=== PATIENT | female | born 1995 | race Caucasian/White ===

== ENCOUNTER 2017-09-22 16:07 | Emergency (ER) | payer OTHER | END 2017-09-22 18:13 | disposition home or self-care (01) | LOC: M ED 16:07 | DX: M62.838 Other muscle spasm (principal); Z32.01 Encounter for pregnancy test, result positive; M41.9 Scoliosis, unspecified; F17.200 Nicotine dependence, unspecified, uncomplicated | CPT/HCPCS: 87086 ==

== ENCOUNTER → 2017-11-23 | Outpatient (CLI) | payer OTHER ==
[2017-11-23 16:34] LABS: BASO # 0.1 10^3/uL (0.0-0.2); BASO % 0.4 % (0.0-1.0); EOS # 0.4 10^3/uL (0.0-0.50); EOS % 2.8 % (0.0-3.0); HEMATOCRIT 36.6 % (36.0-47.0); HEMOGLOBIN 12.4 g/dl (12.0-15.5); IMMATURE GRANULOCYTE % 0.3 % (0-3.0); LYMPH # 3.6 10^3/uL (1.5-6.5); LYMPH % 25.5 % (24.0-44.0); MEAN CORPUSCULAR HGB CONC 33.9 g/dl (32.0-36.5); MEAN CORPUSCULAR VOLUME 82.6 fl (80.0-96.0); MONO # 0.6 10^3/uL (0.0-0.8); MONO % 4.5 % (0.0-5.0); NEUTROPHILS # 9.4 10^3/uL (1.8-7.7); NEUTROPHILS % 66.5 % (36.0-66.0); PLATELET COUNT, AUTOMATED 293 10^3/uL (150-450); RED BLOOD COUNT 4.43 10^6/uL (4.00-5.40); RED CELL DISTRIBUTION WIDTH 12.6 % (11.5-14.5); WHITE BLOOD COUNT 14.1 10^3/uL (4.0-10.0)
[2017-11-23 16:43] LABS: RUBELLA IgG QUALITATIVE IMMUNE (IMMUNE)
[2017-11-23 16:44] LABS: HEPATITIS B SURFACE ANTIGEN NEGATIVE (NEGATIVE)
[2017-11-23 17:12] LABS: HEPATITIS C VIRUS ABY INDEX 0.1 INDEX (<0.8)
[2017-11-23 17:13] LABS: HIV 1&2 SCREEN CENTAUR NEGATIVE (NEGATIVE)
[2017-11-23 17:47] LABS: CHLAMYDIA DNA AMPLIFICATION NEGATIVE (NEGATIVE); GC DNA AMPLIFICATION NEGATIVE (NEGATIVE)
== END ==
LOC: M LAB 14:57
DX: Z34.81 Encounter for supervision of other normal pregnancy, first trimester (principal); Z3A.11 11 weeks gestation of pregnancy
CPT/HCPCS: 86762

== ENCOUNTER → 2017-12-12 | Outpatient (CLI) | payer OTHER | LOC: M RAD 07:32 | DX: Z34.82 Encounter for supervision of other normal pregnancy, second trimester (principal); Z36.89 Encounter for other specified antenatal screening; Z3A.17 17 weeks gestation of pregnancy | CPT/HCPCS: 76811 ==

== ENCOUNTER → 2017-12-21 | Outpatient (REF) | payer OTHER | LOC: M LAB REF 12-24 13:10 | DX: Z34.82 Encounter for supervision of other normal pregnancy, second trimester (principal); Z3A.00 Weeks of gestation of pregnancy not specified | CPT/HCPCS: 87086 ==

== ENCOUNTER → 2018-01-10 | Outpatient (CLI) | payer OTHER | LOC: M RAD 13:43 | DX: Z36.89 Encounter for other specified antenatal screening (principal); Z3A.22 22 weeks gestation of pregnancy | CPT/HCPCS: 76816 ==

== ENCOUNTER 2018-03-05 04:55 | Emergency (ER) | payer OTHER, MEDICAID ==
[2018-03-05] MEDS: NS 1,000 ML IV (07:39)
[2018-03-05 07:43] LABS: BEDSIDE GLUCOSE 85 MG/DL (70-105)
[2018-03-05 07:46] LABS: BASO # 0.1 10^3/uL (0.0-0.2); BASO % 0.5 % (0.0-1.0); EOS # 0.2 10^3/uL (0.0-0.50); EOS % 1.9 % (0.0-3.0); HEMATOCRIT 40.1 % (36.0-47.0); HEMOGLOBIN 13.3 g/dl (12.0-15.5); IMMATURE GRANULOCYTE % 0.3 % (0-3.0); LYMPH # 3.7 10^3/uL (1.5-6.5); LYMPH % 28.9 % (24.0-44.0); MEAN CORPUSCULAR HEMOGLOBIN 28.4 pg (27.0-33.0); MEAN CORPUSCULAR HGB CONC 33.2 g/dl (32.0-36.5); MEAN CORPUSCULAR VOLUME 85.5 fl (80.0-96.0); MONO # 0.9 10^3/uL (0.0-0.8); MONO % 7.1 % (0.0-5.0); NEUTROPHILS # 7.8 10^3/uL (1.8-7.7); NEUTROPHILS % 61.3 % (36.0-66.0); PLATELET COUNT, AUTOMATED 538 10^3/uL (150-450); RED BLOOD COUNT 4.69 10^6/uL (4.00-5.40); RED CELL DISTRIBUTION WIDTH 14.2 % (11.5-14.5); WHITE BLOOD COUNT 12.8 10^3/uL (4.0-10.0)
[2018-03-05 08:11] LABS: ALBUMIN 3.5 GM/DL (3.2-5.2); ALBUMIN/GLOBULIN RATIO 0.88 (1.00-1.93); ALKALINE PHOSPHATASE 96 U/L (45-117); ALT/SGPT 57 U/L (12-78); ANION GAP 9 MEQ/L (8-16); AST/SGOT 33 U/L (7-37); BILIRUBIN,DIRECT 0.1 MG/DL (0.0-0.2); BILIRUBIN,TOTAL 0.5 MG/DL (0.2-1.0); BLOOD UREA NITROGEN 20 MG/DL (7-18); CALCIUM LEVEL 9.5 MG/DL (8.5-10.1); CARBON DIOXIDE LEVEL 25 MEQ/L (21-32); CHLORIDE LEVEL 109 MEQ/L (98-107); CREATININE FOR GFR 0.77 MG/DL (0.55-1.30); GLOMERULAR FILTRATION RATE > 60.0 (>60); GLUCOSE, FASTING 79 MG/DL (70-100); POTASSIUM SERUM 4.9 MEQ/L (3.5-5.1); SODIUM LEVEL 143 MEQ/L (136-145); TOTAL PROTEIN 7.5 GM/DL (6.4-8.2)
[2018-03-05] MEDS: ONDANSETRON 4MG/2ML VIAL (J2405) IV (10:09)
[2018-03-05] MEDS: NIFEdipine 30 MG XL TAB PO (10:23)
[2018-03-05] MEDS: GI COCKTAIL 50ML BTL(HYOSCYAMINE/MAALOX/LIDOCAINE VISCOUS)(1:3:1) PO (11:03)
== END 2018-03-05 11:35 | disposition home or self-care (01) ==
LOC: M ED 04:55
DX: Z76.0 Encounter for issue of repeat prescription (principal); E86.0 Dehydration; Z79.899 Other long term (current) drug therapy
CPT/HCPCS: 80076

== ENCOUNTER 2018-03-15 22:15 | Emergency (ER) | payer OTHER ==
[2018-03-15 23:13] LABS: BASO % 0.4 % (0.0-1.0); EOS # 0.2 10^3/uL (0.0-0.50); EOS % 2.2 % (0.0-3.0); HEMATOCRIT 38.6 % (36.0-47.0); IMMATURE GRANULOCYTE % 0.1 % (0-3.0); LYMPH # 3.7 10^3/uL (1.5-6.5); LYMPH % 40.2 % (24.0-44.0); MEAN CORPUSCULAR HEMOGLOBIN 28.4 pg (27.0-33.0); MEAN CORPUSCULAR HGB CONC 33.7 g/dl (32.0-36.5); MEAN CORPUSCULAR VOLUME 84.3 fl (80.0-96.0); MONO # 0.4 10^3/uL (0.0-0.8); MONO % 4.7 % (0.0-5.0); NEUTROPHILS # 4.8 10^3/uL (1.8-7.7); NEUTROPHILS % 52.4 % (36.0-66.0); PLATELET COUNT, AUTOMATED 377 10^3/uL (150-450); RED BLOOD COUNT 4.58 10^6/uL (4.00-5.40); RED CELL DISTRIBUTION WIDTH 13.5 % (11.5-14.5); WHITE BLOOD COUNT 9.1 10^3/uL (4.0-10.0)
[2018-03-15] MEDS: diphenhydrAMINE INJ 50MG/ML VIAL (J1200) IV (23:27)
[2018-03-15] MEDS: KETOROLAC 30 MG/ML VIAL (J1885) IV (23:27)
[2018-03-15] MEDS: NS 1,000 ML IV (23:27)
[2018-03-15] MEDS: METOCLOPRAMIDE INJ 10MG/2ML VIAL (J2765) IV (23:28)
[2018-03-15] MEDS ORDERED: ISOVUE-370 76% 100ML VIAL (Q9967) As Ordered (23:29)
[2018-03-15 23:40] LABS: ALBUMIN 3.6 GM/DL (3.2-5.2); ALKALINE PHOSPHATASE 86 U/L (45-117); ALT/SGPT 24 U/L (12-78); ANION GAP 9 MEQ/L (8-16); AST/SGOT 15 U/L (7-37); BILIRUBIN,DIRECT 0.2 MG/DL (0.0-0.2); BILIRUBIN,TOTAL 0.7 MG/DL (0.2-1.0); BLOOD UREA NITROGEN 8 MG/DL (7-18); CALCIUM LEVEL 8.8 MG/DL (8.5-10.1); CARBON DIOXIDE LEVEL 25 MEQ/L (21-32); CHLORIDE LEVEL 109 MEQ/L (98-107); CK-MB VALUE MASS < 1.0 NG/ML (<3.6); CPK CREATINE PHOSPHOKINASE 69 U/L (26-192); CREATININE FOR GFR 0.59 MG/DL (0.55-1.30); GLOMERULAR FILTRATION RATE > 60.0 (>60); GLUCOSE, FASTING 78 MG/DL (70-100); MB/CK RELATIVE INDEX 1.45 (< OR =4); POTASSIUM SERUM 3.5 MEQ/L (3.5-5.1); SODIUM LEVEL 143 MEQ/L (136-145); TOTAL PROTEIN 7.6 GM/DL (6.4-8.2); TROPONIN I < 0.02 NG/ML (< 0.10)
== END 2018-03-16 01:00 | disposition home or self-care (01) ==
LOC: M ED 03-16 01:00
DX: O99.43 Diseases of the circulatory system complicating the puerperium (principal); R51 Headache; I10 Essential (primary) hypertension; R11.0 Nausea; Z87.891 Personal history of nicotine dependence; Z79.899 Other long term (current) drug therapy
CPT/HCPCS: J1200

== ENCOUNTER 2018-03-18 14:10 | Emergency (ER) | payer OTHER ==
[2018-03-18] MEDS: hydrOXYzine 50 MG TAB PO (17:36)
[2018-03-18] MEDS: METOCLOPRAMIDE INJ 10MG/2ML VIAL (J2765) IV (17:45)
[2018-03-18] MEDS: NS 1,000 ML IV (17:45)
[2018-03-18] MEDS: KETOROLAC 30 MG/ML VIAL (J1885) IV (17:45)
[2018-03-18 18:20] LABS: BASO # 0.1 10^3/uL (0.0-0.2); BASO % 0.7 % (0.0-1.0); EOS # 0.1 10^3/uL (0.0-0.50); EOS % 1.2 % (0.0-3.0); HEMATOCRIT 38.1 % (36.0-47.0); HEMOGLOBIN 13.1 g/dl (12.0-15.5); IMMATURE GRANULOCYTE % 0.2 % (0-3.0); LYMPH # 3.5 10^3/uL (1.5-6.5); LYMPH % 34.9 % (24.0-44.0); MEAN CORPUSCULAR HEMOGLOBIN 28.4 pg (27.0-33.0); MEAN CORPUSCULAR HGB CONC 34.4 g/dl (32.0-36.5); MEAN CORPUSCULAR VOLUME 82.6 fl (80.0-96.0); MONO # 0.4 10^3/uL (0.0-0.8); MONO % 4.3 % (0.0-5.0); NEUTROPHILS # 5.8 10^3/uL (1.8-7.7); NEUTROPHILS % 58.7 % (36.0-66.0); PLATELET COUNT, AUTOMATED 364 10^3/uL (150-450); RED BLOOD COUNT 4.61 10^6/uL (4.00-5.40); RED CELL DISTRIBUTION WIDTH 13.2 % (11.5-14.5); WHITE BLOOD COUNT 9.9 10^3/uL (4.0-10.0)
[2018-03-18 18:58] LABS: ANION GAP 13 MEQ/L (8-16); BLOOD UREA NITROGEN 10 MG/DL (7-18); C REACTIVE PROTEIN QUANTITATIV < 0.30 MG/DL (0.00-0.30); CALCIUM LEVEL 8.7 MG/DL (8.5-10.1); CARBON DIOXIDE LEVEL 21 MEQ/L (21-32); CHLORIDE LEVEL 106 MEQ/L (98-107); CK-MB VALUE MASS < 1.0 NG/ML (<3.6); CPK CREATINE PHOSPHOKINASE 79 U/L (26-192); CREATININE FOR GFR 0.59 MG/DL (0.55-1.30); GLOMERULAR FILTRATION RATE > 60.0 (>60); GLUCOSE, FASTING 73 MG/DL (70-100); MB/CK RELATIVE INDEX 1.27 (< OR =4); POTASSIUM SERUM 3.8 MEQ/L (3.5-5.1); SODIUM LEVEL 140 MEQ/L (136-145); THYROID STIMULATING HORMONE 0.502 uIU/ML (0.358-3.740); TROPONIN I < 0.02 NG/ML (< 0.10)
== END 2018-03-18 19:19 | disposition home or self-care (01) ==
LOC: M ED 14:10
DX: R51 Headache (principal); F41.0 Panic disorder [episodic paroxysmal anxiety]
CPT/HCPCS: J1885

== ENCOUNTER 2018-04-15 03:27 | Emergency (ER) | payer OTHER ==
[2018-04-15] MEDS: ONDANSETRON 4MG/2ML VIAL (J2405) IV (04:00)
[2018-04-15] MEDS: NS 1,000 ML IV (04:00)
[2018-04-15 04:11] LABS: BASO % 0.3 % (0.0-1.0); EOS # 0.2 10^3/uL (0.0-0.50); EOS % 1.6 % (0.0-3.0); HEMATOCRIT 39.9 % (36.0-47.0); HEMOGLOBIN 13.5 g/dl (12.0-15.5); IMMATURE GRANULOCYTE % 0.3 % (0-3.0); LYMPH # 3.1 10^3/uL (1.5-6.5); MEAN CORPUSCULAR HEMOGLOBIN 28.3 pg (27.0-33.0); MEAN CORPUSCULAR HGB CONC 33.8 g/dl (32.0-36.5); MEAN CORPUSCULAR VOLUME 83.6 fl (80.0-96.0); MONO # 0.5 10^3/uL (0.0-0.8); MONO % 4.2 % (0.0-5.0); NEUTROPHILS # 7.6 10^3/uL (1.8-7.7); NEUTROPHILS % 66.6 % (36.0-66.0); PLATELET COUNT, AUTOMATED 380 10^3/uL (150-450); RED BLOOD COUNT 4.77 10^6/uL (4.00-5.40); RED CELL DISTRIBUTION WIDTH 12.8 % (11.5-14.5); WHITE BLOOD COUNT 11.5 10^3/uL (4.0-10.0)
[2018-04-15] MEDS: MORPHINE 4 MG/ML 1ML VIAL/SYRINGE (J2270) IV (04:17)
[2018-04-15 04:59] LABS: CONTROL LINE HCG INT CTR LINE PRESENT; HCG, SERUM QUALITATIVE NEGATIVE (NEGATIVE)
[2018-04-15 05:07] LABS: ALBUMIN 3.3 GM/DL (3.2-5.2); ALBUMIN/GLOBULIN RATIO 1.03 (1.00-1.93); ALKALINE PHOSPHATASE 54 U/L (45-117); ALT/SGPT 23 U/L (12-78); ANION GAP 9 MEQ/L (8-16); AST/SGOT 17 U/L (7-37); BILIRUBIN,DIRECT < 0.1 MG/DL (0.0-0.2); BILIRUBIN,TOTAL 0.4 MG/DL (0.2-1.0); BLOOD UREA NITROGEN 9 MG/DL (7-18); CALCIUM LEVEL 8.2 MG/DL (8.5-10.1); CARBON DIOXIDE LEVEL 24 MEQ/L (21-32); CHLORIDE LEVEL 110 MEQ/L (98-107); CREATININE FOR GFR 0.64 MG/DL (0.55-1.30); GLOMERULAR FILTRATION RATE > 60.0 (>60); GLUCOSE, FASTING 118 MG/DL (70-100); LIPASE 136 U/L (73-393); POTASSIUM SERUM 3.6 MEQ/L (3.5-5.1); SODIUM LEVEL 143 MEQ/L (136-145); TOTAL PROTEIN 6.5 GM/DL (6.4-8.2)
[2018-04-15] MEDS ORDERED: ISOVUE-370 76% 100ML VIAL (Q9967) As Ordered (05:13)
[2018-04-15] MEDS: CIPROFLOXACIN 500 MG TAB PO (06:45)
[2018-04-15] MEDS: metroNIDAZOLE (FLAGYL) 500 MG TAB PO (06:45)
[2018-04-15] MEDS: OXYCODONE/APAP 5MG/325MG(BULK FOR ED) 1 TABLET PO (06:45)
== END 2018-04-15 07:07 | disposition home or self-care (01) ==
LOC: M ED 03:27
DX: K52.9 Noninfective gastroenteritis and colitis, unspecified (principal); Z72.0 Tobacco use; Z79.899 Other long term (current) drug therapy
CPT/HCPCS: J2270

== ENCOUNTER 2018-04-23 19:35 | Observation (INO) | payer OTHER ==
[2018-04-23 20:07] LABS: HEMATOCRIT 39.4 % (36.0-47.0); HEMOGLOBIN 13.4 g/dl (12.0-15.5); MEAN CORPUSCULAR HEMOGLOBIN 28.2 pg (27.0-33.0); MEAN CORPUSCULAR VOLUME 82.9 fl (80.0-96.0); PLATELET COUNT, AUTOMATED 390 10^3/uL (150-450); RED BLOOD COUNT 4.75 10^6/uL (4.00-5.40); RED CELL DISTRIBUTION WIDTH 12.6 % (11.5-14.5)
[2018-04-23] MEDS: NS 500 ML IV (20:07)
[2018-04-23 20:09] LABS: ADD MANUAL DIFFER YES; DIFF SLIDE NUMBER 369; POSITIVE DIFF POS FLAG
[2018-04-23 20:25] LABS: ATYPICAL LYMPH 12 % (0-5); EOSINOPHILS 3 % (0-5); LYMPHOCYTES 28 % (16-52); MONOCYTES 6 % (0-8); NEUTROPHILS 51 % (35-75); PLATELET ESTIMATE NORMAL (NORMAL)
[2018-04-23 20:31] LABS: ALBUMIN 4.4 GM/DL (3.2-5.2); ALBUMIN/GLOBULIN RATIO 1.16 (1.00-1.93); ALKALINE PHOSPHATASE 68 U/L (45-117); ALT/SGPT 36 U/L (12-78); ANION GAP 7 MEQ/L (8-16); AST/SGOT 20 U/L (7-37); BILIRUBIN,DIRECT < 0.1 MG/DL (0.0-0.2); BILIRUBIN,TOTAL 0.6 MG/DL (0.2-1.0); BLOOD UREA NITROGEN 9 MG/DL (7-18); C REACTIVE PROTEIN QUANTITATIV 0.35 MG/DL (0.00-0.30); CALCIUM LEVEL 9.4 MG/DL (8.5-10.1); CARBON DIOXIDE LEVEL 23 MEQ/L (21-32); CHLORIDE LEVEL 109 MEQ/L (98-107); CK-MB VALUE MASS < 1.0 NG/ML (<3.6); CPK CREATINE PHOSPHOKINASE 85 U/L (26-192); CREATININE FOR GFR 0.91 MG/DL (0.55-1.30); GLOMERULAR FILTRATION RATE > 60.0 (>60); GLUCOSE, FASTING 116 MG/DL (70-100); LIPASE 175 U/L (73-393); MB/CK RELATIVE INDEX 1.18 (< OR =4); NT-PRO BNP 60 PG/ML (<125); POTASSIUM SERUM 3.6 MEQ/L (3.5-5.1); SODIUM LEVEL 139 MEQ/L (136-145); THYROID STIMULATING HORMONE 0.822 uIU/ML (0.358-3.740); TOTAL PROTEIN 8.2 GM/DL (6.4-8.2); TROPONIN I < 0.02 NG/ML (< 0.10)
[2018-04-23 20:57] LABS: ERYTHROCYTE SEDIMENTATION RATE 19 mm/hr (0-20)
[2018-04-23] MEDS: KETOROLAC 30 MG/ML VIAL (J1885) IV (21:16)
[2018-04-23] MEDS ORDERED: ISOVUE-370 76% 100ML VIAL (Q9967) As Ordered (21:54)
[2018-04-23] MEDS: NS 1,000 ML IV (22:30)
[2018-04-23] MEDS: METOCLOPRAMIDE INJ 10MG/2ML VIAL (J2765) IV (22:30)
[2018-04-23] MEDS: GI COCKTAIL 50ML BTL(HYOSCYAMINE/MAALOX/LIDOCAINE VISCOUS)(1:3:1) PO (22:30)
[2018-04-24 01:32] LABS: MAGNESIUM LEVEL 2.1 MG/DL (1.8-2.4)
[2018-04-24 01:49] LABS: LACTIC ACID SEPSIS PROTOCOL 2.3 MMOL/L (0.4-2.0)
[2018-04-24] MEDS: ONDANSETRON 4 MG TAB (S0181) PO ×2 (03:35→13:17)
[2018-04-24] MEDS: NS 1,000 ML IV ×2 (06:08→15:56)
[2018-04-24 07:50] LABS: CK-MB VALUE MASS < 1.0 NG/ML (<3.6); CPK CREATINE PHOSPHOKINASE 55 U/L (26-192); MB/CK RELATIVE INDEX 1.82 (< OR =4); TROPONIN I < 0.02 NG/ML (< 0.10)
[2018-04-24] MEDS: PANTOPRAZOLE 40MG TAB (PROTONIX) PO (08:23)
[2018-04-24] MEDS: SERTRALINE HCL 50 MG TAB PO (08:23)
[2018-04-24] MEDS: NIFEdipine 30 MG XL TAB PO (08:23)
[2018-04-24 15:57] LABS: CK-MB VALUE MASS < 1.0 NG/ML (<3.6); CPK CREATINE PHOSPHOKINASE 61 U/L (26-192); MB/CK RELATIVE INDEX 1.64 (< OR =4); TROPONIN I < 0.02 NG/ML (< 0.10)
[2018-04-24] MEDS: MAALOX 30 ML SUSP *UDC PO ×2 (16:12→21:25)
[2018-04-24] MEDS: LIDOCAINE VISCOUS 2% SOLN 15ML UDC PO (17:52)
[2018-04-24] MEDS: ACETAMINOPHEN TAB 650MG DOSE (2X325MG) PO (20:13)
[2018-04-25] MEDS: hydrOXYzine 25 MG TAB PO (00:02)
[2018-04-25 00:23] LABS: CK-MB VALUE MASS < 1.0 NG/ML (<3.6); CPK CREATINE PHOSPHOKINASE 57 U/L (26-192); MB/CK RELATIVE INDEX 1.75 (< OR =4); TROPONIN I < 0.02 NG/ML (< 0.10)
[2018-04-25] MEDS: NS 1,000 ML IV (01:30)
[2018-04-25 06:30] LABS: HEMATOCRIT 30.7 % (36.0-47.0); MEAN CORPUSCULAR HEMOGLOBIN 27.9 pg (27.0-33.0); MEAN CORPUSCULAR HGB CONC 33.2 g/dl (32.0-36.5); MEAN CORPUSCULAR VOLUME 83.9 fl (80.0-96.0); PLATELET COUNT, AUTOMATED 271 10^3/uL (150-450); RED BLOOD COUNT 3.66 10^6/uL (4.00-5.40); RED CELL DISTRIBUTION WIDTH 12.8 % (11.5-14.5); WHITE BLOOD COUNT 8.9 10^3/uL (4.0-10.0)
[2018-04-25 06:38] LABS: ANION GAP 7 MEQ/L (8-16); BLOOD UREA NITROGEN 6 MG/DL (7-18); CALCIUM LEVEL 8.2 MG/DL (8.5-10.1); CARBON DIOXIDE LEVEL 24 MEQ/L (21-32); CHLORIDE LEVEL 111 MEQ/L (98-107); CREATININE FOR GFR 0.68 MG/DL (0.55-1.30); GLOMERULAR FILTRATION RATE > 60.0 (>60); GLUCOSE, FASTING 76 MG/DL (70-100); MAGNESIUM LEVEL 2.2 MG/DL (1.8-2.4); POTASSIUM SERUM 3.5 MEQ/L (3.5-5.1); SODIUM LEVEL 142 MEQ/L (136-145)
[2018-04-25 06:45] LABS: POSITIVE DIFF POS FLAG
[2018-04-25 06:48] LABS: HEMOGLOBIN 10.2 g/dl (12.0-15.5)
[2018-04-25 06:49] LABS: ADD MANUAL DIFFER YES; DIFF SLIDE NUMBER 44
[2018-04-25 07:53] LABS: ANISOCYTOSIS 1+; ATYPICAL LYMPH 1 % (0-5); BASOPHILS 1 % (0-4); EOSINOPHILS 1 % (0-5); HYPOCHROMASIA 1+; LYMPHOCYTES 59 % (16-52); MICROCYTOSIS 1+; MONOCYTES 2 % (0-8); NEUTROPHILS 36 % (35-75); PLATELET ESTIMATE NORMAL (NORMAL)
[2018-04-25] MEDS: SERTRALINE HCL 50 MG TAB PO (08:34)
[2018-04-25] MEDS: PANTOPRAZOLE 40MG TAB (PROTONIX) PO (08:34)
[2018-04-25] MEDS: NIFEdipine 30 MG XL TAB PO (08:35)
== END 2018-04-25 11:52 | disposition home or self-care (01) ==
LOC: M ED INP 19:36 → M MSPAV 04-24 02:59 → M ED 19:35
DX: R07.9 Chest pain, unspecified (principal); R10.13 Epigastric pain; R19.7 Diarrhea, unspecified; K21.9 Gastro-esophageal reflux disease without esophagitis; R00.0 Tachycardia, unspecified; E86.0 Dehydration; F32.9 Major depressive disorder, single episode, unspecified; Z79.899 Other long term (current) drug therapy
CPT/HCPCS: Q9967

== ENCOUNTER → 2018-05-10 | Outpatient (REF) | payer OTHER | LOC: M SFHCPLAZ 15:36 | DX: Z53.9 Procedure and treatment not carried out, unspecified reason (principal) ==

== ENCOUNTER 2018-06-18 06:00 | Day surgery (SDC) | payer OTHER ==
[~2018-06-18] VITALS: Ht 162.6 cm; Wt 89.8 kg
[~2018-06-18 06:00] MED LIST: AMLO5TAB6 PO; CIPR-249 PO; CYCL10TA PO; FLAG500T PO; HYDR-3363 PO; LR 1,000 ML IV ONE; MAKE250I IM; MAPA500T2 PO; MYLASSUD PO; NIFE30TA7 PO; NIFE90TA3 PO; NUVAMIS2 PV; PANT40TA3 PO; REGL10TA6 PO; SERT-155 PO; SUCR1TA PO; ZOFR4TAB14 PO
[2018-06-18 06:19] LABS: HEMATOCRIT 38.7 % (36.0-47.0); HEMOGLOBIN 12.7 g/dl (12.0-15.5); MEAN CORPUSCULAR HEMOGLOBIN 27.8 pg (27.0-33.0); MEAN CORPUSCULAR HGB CONC 32.8 g/dl (32.0-36.5); MEAN CORPUSCULAR VOLUME 84.7 fl (80.0-96.0); PLATELET COUNT, AUTOMATED 328 10^3/uL (150-450); RED BLOOD COUNT 4.57 10^6/uL (4.00-5.40); WHITE BLOOD COUNT 11.9 10^3/uL (4.0-10.0)
[2018-06-18 06:41] LABS: HCG, SERUM QUALITATIVE NEGATIVE (NEGATIVE)
[2018-06-18] MEDS ORDERED: BUPIVACAINE HCL 0.25% 10 ML VIAL As Ordered ONE (07:09)
[2018-06-18] MEDS ORDERED: SILVER NITRATE APPLICATOR As Ordered ONE (07:10)
[2018-06-18] MEDS ORDERED: LIDOCAINE 2% INJ 100 MG/5 ML SDV (FOR ANES.) As Ordered ONE (07:14)
[2018-06-18] MEDS ORDERED: PROPOFOL 200 MG/20 ML VIAL As Ordered ONE (07:14)
[2018-06-18] MEDS ORDERED: ROCURONIUM BROMIDE 50 MG/5 ML VIAL As Ordered ONE ×2 (07:14→08:15)
[2018-06-18] MEDS ORDERED: fentaNYL 100 MCG/2 ML INJECTION (J3010) As Ordered ONE ×2 (07:15→09:07)
[2018-06-18] MEDS ORDERED: MIDAZOLAM INJ 2 MG/2 ML VIAL (J2250) As Ordered ONE (07:15)
[2018-06-18] MEDS ORDERED: dexameTHASONE 4 MG/ML 1ML VIAL (J1100) As Ordered ONE (07:53)
[2018-06-18] MEDS ORDERED: HYDROmorphone HCL 2 MG/ML 1ML VIAL (J1170) As Ordered ONE (08:10)
[2018-06-18] MEDS ORDERED: KETOROLAC 60 MG/2 ML VIAL (J1885) As Ordered ONE (08:37)
[2018-06-18] MEDS ORDERED: ONDANSETRON 4MG/2ML VIAL (J2405) As Ordered ONE (08:37)
[2018-06-18] MEDS ORDERED: SUGAMMADEX SODIUM 500 MG/5 ML VIAL (BRIDION) As Ordered ONE (08:38)
[2018-06-18] MEDS ORDERED: PERCOCET 5MG/325MG TAB As Ordered ONE (09:07)
[2018-06-18] MEDS: PERCOCET 5MG/325MG TAB PO PRN ×2 (09:10→09:40)
[2018-06-18] MEDS: fentaNYL 100 MCG/2 ML INJECTION (J3010) IV PRN ×4 (09:10→09:25)
[2018-06-18] MEDS ORDERED: HYDROMORPHONE HCL 0.5 MG/ 0.5 ML SYRINGE (J1170 PER 1) IV PRN (09:15)
[2018-06-18] MEDS ORDERED: LR 1,000 ML IV SCH ×2 (09:15)
[2018-06-18] MEDS ORDERED: ONDANSETRON 4MG/2ML VIAL (J2405) IV PRN (09:15)
[2018-06-18] MEDS ORDERED: PERCOCET PO (10:18)
[2018-06-18] MEDS ORDERED: IBUP80TA PO (10:19)
[2018-06-18] MEDS ORDERED: COLA100C5 PO (10:19)
[2018-06-18 11:39] VITALS: BP 117/64
--- NOTE | 2018-06-19 13:05 | RO ---
DATE OF PROCEDURE: 06/18/2018 PREOPERATIVE DIAGNOSIS: Satisfied parity. POSTOPERATIVE DIAGNOSIS: Satisfied parity. PROCEDURE PERFORMED: Laparoscopic bilateral salpingectomy. FINDINGS: Normal uterus and bilateral adnexa and ovaries. Minimal adhesions. SURGEON: Jose De Jesus Nichols DO CLINICAL CYTOGENETICIST: Dari, PGY-1. ANESTHESIA TYPE: General endotracheal. SPECIMENS TO PATHOLOGY: Bilateral fallopian tubes. ESTIMATED BLOOD LOSS: 5 mL. FLUIDS REPLACED: 1 liter of lactated Ringer's. DRAINS: Boswell catheter. URINE OUTPUT: 100 mL during the case. COMPLICATIONS: None. PREOPERATIVE ANTIBIOTICS: None indicated. The patient is of 100% satisfied parity. She has been offered long-acting reversible contraception. She has declined this option. She is firm in her decision for permanent tubal sterilization. She has had two complicated pregnancies both deliveries. DESCRIPTION OF PROCEDURE: The patient was counseled and consented on the risks, benefits, indications and alternatives of the procedure. Informed consent was obtained. She was taken to the operating room with an IV running. She was placed on the operating room table in the dorsal supine position. General anesthesia was administered and airway was secured without any difficulty. She was placed in the low lithotomy position. She was prepared and draped in normal sterile fashion. Time-out was performed per protocol. A Boswell catheter was placed under sterile conditions. A sterile speculum was placed with good visualization of the cervix. The anterior lip of the cervix was grasped with a single-tooth tenaculum. Downward traction was applied. The cervix was sequentially dilated with Rhett dilators. The ZUMI uterine manipulator was then placed without any difficulty. Single-tooth tenaculum was removed. Sterile speculum was removed. Glove switch was performed. Attention was turned to the abdomen. 0.25% Marcaine was injected in the umbilicus. A 5 mm incision was made in umbilicus with the #11 blade and through this incision a Veress needle was placed into the intraperitoneal cavity. Intraperitoneal placement was confirmed with ease of flow of normal saline, positive drop test and negative return on aspiration. The opening pressure was 6 mmHg. The abdomen was insufflated with 2 liters of gas. The Veress needle was removed. A size 5 mm Xcel laparoscopic trocar was placed through the umbilicus. Intraperitoneal placement was confirmed without any incidental bleeding or injury. The patient was placed in steep Trendelenburg. Two additional laparoscopic port sites were placed through 5 mm incisions in the left lower quadrant. Cannulas were placed under direct visualization without any difficulty. Attention was first turned to the left fallopian tube. The left fallopian tube was grasped at the fimbriated end and elevated. The underlying mesosalpinx was sequentially clamped, coagulated and transected to the level of broad ligament at the level of the cornu. At the level of cornu, the left fallopian tube was clamped, coagulated and transected. The fallopian tube was brought through the cannula without any difficulty and sent to pathology for permanent section. In a similar fashion, attention was turned to the right fallopian tube. The right fallopian tube was grasped at the fimbriated end and elevated. The underlying mesosalpinx was sequentially coagulated and transected until the level of the cornu was reached. At the level of cornu, the fallopian tube was clamped, coagulated and transected thus amputating. The right fallopian tube was brought through the cannula and sent to pathology for permanent section. Both the right and left fallopian tubes were removed and the sites were hemostatic. The gas was released from the abdomen. As the gas was released, inspection of the pelvis revealed continued hemostasis. The cannulas were removed. The skin incisions were closed with #4-0 Monocryl in subcuticular fashion and reinforced with Dermabond. The ZUMI uterine manipulator was removed. The Boswell catheter was removed. All instruments were removed from vagina. Sponge, lap, needle and instrument counts were correct times three. The patient was transferred to the postanesthesia care unit (PACU) in good and stable condition. BRAXTON
== END 2018-06-18 11:58 | disposition home or self-care (01) ==
LOC: M SDC 06:00
PROVIDERS: ATTEND Obstetrics & Gynecology
DX: Z30.2 Encounter for sterilization (principal)
CPT/HCPCS: 36415; 58661; 84703; 85027; 86850; 86900; 86901; 88302; J1100; J1170; J1885; J2250; J2405; J3010

== ENCOUNTER 2018-07-06 00:54 | Emergency (ER) | payer OTHER ==
[~2018-07-06] VITALS: Ht 162.6 cm; Wt 93.2 kg
[~2018-07-06 00:54] MED LIST changes: +COLA100C5 PO; +IBUP80TA PO; -LR 1,000 ML IV ONE; +PERCOCET PO
[2018-07-06] MEDS ORDERED: KETOROLAC TROMETHAMINE 10 MG TAB PO ONE (01:30)
[2018-07-06] MEDS ORDERED: ONDANSETRON 4 MG ORAL DISINTEGRATING TAB (Q0162 PER 1MG) PO ONE (01:30)
[2018-07-06] MEDS ORDERED: AMOX500C PO (03:24)
[2018-07-06] MEDS ORDERED: AMOXICILLIN 500 MG CAP PO ONE (03:30)
[2018-07-06 03:32] VITALS: BP 125/82
== END 2018-07-06 03:38 | disposition home or self-care (01) ==
LOC: M ED 00:54
DX: J32.1 Chronic frontal sinusitis (principal); F17.210 Nicotine dependence, cigarettes, uncomplicated
CPT/HCPCS: 99283; Q0162

== ENCOUNTER → 2018-07-29 | Outpatient (REF) | payer OTHER ==
[~2018-07-29] MED LIST changes: +AMOX500C PO
[2018-07-29 13:17] LABS: HEMATOCRIT 39.6 % (36.0-47.0); HEMOGLOBIN 12.9 g/dl (12.0-15.5); MEAN CORPUSCULAR HEMOGLOBIN 27.8 pg (27.0-33.0); MEAN CORPUSCULAR HGB CONC 32.6 g/dl (32.0-36.5); MEAN CORPUSCULAR VOLUME 85.3 fl (80.0-96.0); PLATELET COUNT, AUTOMATED 331 10^3/uL (150-450); RED BLOOD COUNT 4.64 10^6/uL (4.00-5.40); WHITE BLOOD COUNT 10.9 10^3/uL (4.0-10.0)
[2018-07-29 13:23] LABS: ALBUMIN 4.1 GM/DL (3.2-5.2); ALT/SGPT 23 U/L (12-78); BILIRUBIN,TOTAL 0.7 MG/DL (0.2-1.0); BLOOD UREA NITROGEN 9 MG/DL (7-18); CARBON DIOXIDE LEVEL 28 MEQ/L (21-32); CHLORIDE LEVEL 108 MEQ/L (98-107); GLOMERULAR FILTRATION RATE > 60.0 (>60); GLUCOSE, FASTING 92 MG/DL (70-100); POTASSIUM SERUM 3.8 MEQ/L (3.5-5.1); SODIUM LEVEL 142 MEQ/L (136-145); TOTAL PROTEIN 7.4 GM/DL (6.4-8.2)
== END ==
LOC: M SFHCPLAZ 10:48
PROVIDERS: ATTEND Family Medicine
DX: O14.90 Unspecified pre-eclampsia, unspecified trimester (principal); Z3A.00 Weeks of gestation of pregnancy not specified

== ENCOUNTER 2018-08-16 09:27 | Emergency (ER) | payer OTHER ==
[~2018-08-16] VITALS: Ht 162.6 cm; Wt 94.4 kg
[2018-08-16] MEDS ORDERED: ONDANSETRON 4MG/2ML VIAL (J2405) IV ONE (10:00)
[2018-08-16] MEDS ORDERED: FAMOTIDINE IV BAG 20 MG in APPROPRIATE DILUENT 1 EA IV ONE (10:15)
[2018-08-16] MEDS ORDERED: KETOROLAC 30 MG/ML VIAL (J1885) IV ONE (10:15)
[2018-08-16 10:46] LABS: BASO % 0.2 % (0.0-1.0); EOS # 0.1 10^3/uL (0.0-0.50); EOS % 0.6 % (0.0-3.0); HEMATOCRIT 41.5 % (36.0-47.0); HEMOGLOBIN 13.5 g/dl (12.0-15.5); LYMPH # 1.2 10^3/uL (1.5-6.5); LYMPH % 9.7 % (24.0-44.0); MEAN CORPUSCULAR HEMOGLOBIN 27.6 pg (27.0-33.0); MEAN CORPUSCULAR HGB CONC 32.5 g/dl (32.0-36.5); MEAN CORPUSCULAR VOLUME 84.9 fl (80.0-96.0); MONO # 0.5 10^3/uL (0.0-0.8); MONO % 3.6 % (0.0-5.0); NEUTROPHILS # 10.8 10^3/uL (1.8-7.7); NEUTROPHILS % 85.4 % (36.0-66.0); PLATELET COUNT, AUTOMATED 315 10^3/uL (150-450); RED BLOOD COUNT 4.89 10^6/uL (4.00-5.40); WHITE BLOOD COUNT 12.6 10^3/uL (4.0-10.0)
[2018-08-16 11:16] LABS: ALT/SGPT 24 U/L (12-78); AMYLASE 41 U/L (25-115); BILIRUBIN,DIRECT 0.2 MG/DL (0.0-0.2); BILIRUBIN,TOTAL 1.1 MG/DL (0.2-1.0); BLOOD UREA NITROGEN 12 MG/DL (7-18); CALCIUM LEVEL 8.6 MG/DL (8.5-10.1); CARBON DIOXIDE LEVEL 26 MEQ/L (21-32); CHLORIDE LEVEL 106 MEQ/L (98-107); CREATININE FOR GFR 0.71 MG/DL (0.55-1.30); GLOMERULAR FILTRATION RATE > 60.0 (>60); GLUCOSE, FASTING 123 MG/DL (70-100); LIPASE 92 U/L (73-393); POTASSIUM SERUM 3.9 MEQ/L (3.5-5.1); SODIUM LEVEL 138 MEQ/L (136-145); TOTAL PROTEIN 7.4 GM/DL (6.4-8.2)
--- NOTE | 2018-08-16 11:57 | REP ---
CT ABDOMEN AND PELVIS WITHOUT CONTRAST: 08/16/[address] 04/15/2018. Clinical history: Abdominal pain. Findings: CT abdomen: The lung bases were clear. Heart is not enlarged. There is no pericardial thickening or effusion. I see no hiatal hernia. Stomach filled with retained food in the fundus. It is not abnormally dilated. I see no hepatosplenomegaly, focal hepatic or splenic mass nor intrahepatic biliary dilatation. There is no cyst in the liver nor perihepatic ascites. Gallbladder is partly contracted and shows no calcified stone or mass. Adrenal glands are normal. Kidneys are without hydronephrosis, cyst or solid mass. They have slightly hyperdense pyramids bilaterally. No stones in the collecting system. No hydronephrosis, hydroureter or ureteral stone. Pancreas shows no mass or ductal dilatation and no adjacent inflammatory change. Aorta is without aneurysm. No periaortic, retroperitoneal or mesenteric pathologic sized lymph adenopathy. Small bowel loops are grossly unremarkable. Most are fluid-filled proximally and more air filled distally but no sign of obstruction. Lung window review of all CT slices abdomen and pelvis shows no perforation or free air and no pneumatosis. No ventral hernia. Abdominal portion of the colon shows no sign of colitis or diverticulitis with scattered stool and gas. The left colon is collapsed. The thickened edematous wall of the mid left colon on the previous CT is resolved. There are no inflammatory changes in the pericolonic fat or fluid along the peroneal gutter. The bone windows show visualized ribs, lower thoracic and lumbar spine grossly intact. Posterior elements unremarkable. No spondylolysis. CT pelvis: The bony sacrum, pelvis, hips and SI joints were unremarkable. Distal ureters are without dilatation or stone. Uterus is slightly retroverted. There is no adnexal mass or pelvic free fluid. The distal left colon, sigmoid and rectum are without inflammatory changes in the adjacent fat to suggest colitis. Small bowel loops in the deep pelvis unremarkable. Terminal ileum shows no abnormal wall thickening or definite signs of inflammatory bowel. The midline pelvis shows no ventral hernia and there is no inguinal hernia or adenopathy and no pelvic adenopathy. Impression: 1. No CT evidence of colitis in the abdominal or pelvic portions of colon, complete resolution of the findings on the previous CT on that left colon. 2. Small bowel loops unremarkable. 3. No inflammatory changes about the cecum and the solid organs, gallbladder, stomach, pelvic organs, and bones all unremarkable. No acute finding by CT. Electronically Signed by Rangel Salazar MD 08/16/2018 06:36 P
[2018-08-16 12:08] VITALS: BP 120/68
[2018-08-16] MEDS ORDERED: ZOFR8TAB24 PO (12:16)
[2018-08-16] MEDS ORDERED: DICYCLOMINE 10 MG CAP PO ONE (12:30)
== END 2018-08-16 12:32 | disposition home or self-care (01) ==
LOC: M ED 09:27
DX: K52.9 Noninfective gastroenteritis and colitis, unspecified (principal); Z87.891 Personal history of nicotine dependence
CPT/HCPCS: 74176; 80048; 80076; 81001; 81025; 82150; 83690; 85025; 96365; 96366; 96375; 99284; J1885; J2405

== ENCOUNTER → 2019-04-22 | Outpatient (REF) | payer OTHER ==
[~2019-04-22] MED LIST changes: -SERT-155 PO; +SERT50TA29 PO; +ZOFR8TAB24 PO
[2019-04-22 21:33] LABS: CHLAMYDIA DNA AMPLIFICATION NEGATIVE (NEGATIVE); GC DNA AMPLIFICATION NEGATIVE (NEGATIVE)
== END ==
LOC: M LAB REF 16:55
PROVIDERS: ATTEND Obstetrics & Gynecology
DX: Z12.4 Encounter for screening for malignant neoplasm of cervix (principal)

== ENCOUNTER 2019-05-02 13:07 | Emergency (ER) | payer OTHER ==
[~2019-05-02] VITALS: Ht 162.6 cm; Wt 100.0 kg
[2019-05-02 13:20] VITALS: BP 137/64
--- NOTE | 2019-05-02 13:38 | ED PDOC ---
Provider Note New Patient Luisito Antunez MRN: N/A Date of : N/A Date of Service: 05/02/2019 Chief Complaint Consultation for safety. History of Present Illness The patient is a 24-year-old woman is seen in the ER. She had been brought in by police reportedly after getting into an argument with her boyfriend where she had hit a window and had made a "suicidal statement." When the patient was interviewed, she stated that she had in fact said these statements, but had no intention of acting on them, saying that they were done in hyperbole and in anger. She reports having no major psychiatric history other than mild depression, treated by her primary care. She reports that she otherwise was engaged in argument. The police report and interfering of the police per report from the ER states that the patient was brought in because the boyfriend "did not want her at his how anymore," but that it had been believed primarily to be in anger. Collateral information gathered from the patient's parents indicate that the patient has not had a significant history of psychiatric engagement, has not engaged in any prior suicidal behavior and otherwise has been within her normal mental status, suggesting that the patient's account of things is accurate. Review Of Systems Depression: The patient reports some mild low mood at times, but does not meet full criteria for MDD, primarily reports situational problems. Anxiety: The patient denies any excessive worry associated with physical symptoms. They deny any experience of discreet panic in the past. Vane: The patient denies any episodes of euphoria/dysphoria associated with de creased need for sleep, hedonism, talkatively or impulsivity lasting longer than 5 days. Psychotic: The patient denies any experiences of auditory or visual hallucinations. They deny any episodes of paranoia or delusional thinking in the past Trauma: The patient denies any traumatic events associated with nightmares or intrusive thoughts. Borderline: The patient screens negative for borderline personality at this junction. Past Psychiatric History The patient reports no history of psychiatric admissions, medication trials or current follow up. Denies any history of suicide attempts. Allergies reviewed Family Psychiatric History The patient denies/is unaware any history of mental health history including addictions and suicide. Social History The patient currently lives with boyfriend. 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 She reports no history of trauma or abuse. She reports that she has a good relationship with her parents and that her conflict with her boyfriend is an ongoing difficulty. She reports no legal trouble or history of assaults. Substance Abuse History Reports half a pack a day of tobacco use. Denies excessive alcohol use. Reports intermittent cannabis use. Denies opiates, cocaine or other significant substance use problems. 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 Mental Status Examination General: Well dressed with good hygiene Speech: Spontaneous and fluid Thought processes: Linear and logical MSK: Smooth and coordinated gait, no signs of tremors or involuntary orofacial movements Thought content: Future orientated Abstract reasoning, and computation: Intact Description of associations: Intact Description of abnormal or psychotic thoughts: Denies any suicidal or homicidal ideation. Denies any auditory or visual hallucinations. Does not appear to be responding to internal stimuli. Does not appear to be endorsing any bizarre or paranoid ideation. Judgment: fair Insight: fair Orientation: Alert and orientated 3 Cognition: Grossly normal Recent and remote memory: Intact Attention span and concentration: Intact Fund of knowledge: Adequate Mood: "okay" Affect: Euthymic with a full range Diagnoses Situational disturbance. Assessment and Plan The patient a 24-year-old woman who is likely presenting due to a situational disturbance. She had reportedly made statements out of anger in which she had no intention and that they did not reflect her actual thought process. Collateral information from her family confirms that the patient is in her normal state of health and is not engaging in a prior suicidal behavior, they will medicinal plant picker the patient, transport her to home so that she is out of the current stressful situ ation. She will get an x-ray of her hands out of an abundance of caution, however, at this time, she does not mean involuntary criteria as her collateral information is confirmed that the statements made do not reflect her underlying way of thinking and that she is not engaged in prior suicidal behavior and confirmed the evaluation. She denies suicidal or homicidal ideation at this time, has a normal mental status, is amenable, friendly and engaged with the evaluation suggesting that she is not significantly impaired by any mental health process and does not meet criteria for involuntary stay. She declines a voluntary admission after discussion of risks and benefits. Disposition Discharge to home. Time Spent 45 minutes. Sunday ANIBAL NERI DO May 02, 2019 13:38
[2019-05-02] MEDS ORDERED: ADACEL/BOOSTRIX VACCINE (DIPHTH/PERTUSS/ACELL/TETANUS)0.5ML SYR (90715) IM ONE (13:45)
== END 2019-05-02 14:57 | disposition home or self-care (01) ==
LOC: M ED 13:07
DX: S60.410A Abrasion of right index finger, initial encounter (principal); Z04.6 Encounter for general psychiatric examination, requested by authority; W22.8XXA Striking against or struck by other objects, initial encounter; Y92.9 Unspecified place or not applicable; Y93.89 Activity, other specified; Y99.9 Unspecified external cause status; G43.909 Migraine, unspecified, not intractable, without status migrainosus; K51.90 Ulcerative colitis, unspecified, without complications; F17.200 Nicotine dependence, unspecified, uncomplicated

== ENCOUNTER → 2019-07-09 | Outpatient (REF) | payer OTHER ==
[~2019-07-09] MED LIST changes: +NIFE1TAB50 PO; +NIFE1TAB52 PO; -NIFE30TA7 PO; -NIFE90TA3 PO
[2019-07-09 14:07] LABS: APPEARANCE, URINE HAZY (CLEAR); BACTERIA, URINE AUTO NEGATIVE (NEGATIVE); BILIRUBIN, URINE AUTO NEGATIVE (NEGATIVE); BLOOD, URINE BLOOD NEGATIVE (NEGATIVE); COLOR, URINE YELLOW (YELLOW); GLUCOSE, URINE (UA) AUTO NEGATIVE (NEGATIVE); KETONE, URINE AUTO NEGATIVE (NEGATIVE); LEUKOCYTE ESTERASE, URINE AUTO TRACE (NEGATIVE); MUCUS, URINE SMALL (NEGATIVE); NITRITE, URINE AUTO NEGATIVE (NEGATIVE); PROTEIN, URINE AUTO NEGATIVE (NEGATIVE); RBC, URINE AUTO 2 /HPF (0-3); SPECIFIC GRAVITY URINE AUTO 1.017 (1.002-1.035); SQUAMOUS EPITHELIAL CELL UR AU 2 /HPF (0-6); UROBILINOGEN, URINE AUTO 0.2 mg/dL (0.0-2.0); WBC, URINE AUTO 23 /HPF (0-3)
== END ==
LOC: M LAB REF 12:56
PROVIDERS: ATTEND Physician Assistant
DX: N39.0 Urinary tract infection, site not specified (principal)

== ENCOUNTER 2019-07-14 08:10 | Emergency (ER) | payer OTHER ==
[~2019-07-14] VITALS: Ht 162.6 cm; Wt 96.1 kg
[2019-07-14] MEDS ORDERED: SULF1TAB93 (08:21)
[2019-07-14] MEDS ORDERED: ALBU8.5H (08:21)
[2019-07-14] MEDS ORDERED: LIDOCAINE 2% MDV 20 ML VIAL SC ONE (10:00)
[2019-07-14] MEDS ORDERED: NEOSPORIN TOP OINT 15GM TOP ONE (10:45)
[2019-07-14] MEDS ORDERED: CLIN150C14 PO (10:45)
[2019-07-14 10:55] VITALS: BP 116/70
== END 2019-07-14 11:12 | disposition home or self-care (01) ==
LOC: M ED 08:10 → EEVIPCON 08:10 → M ED 11:12
DX: L02.411 Cutaneous abscess of right axilla (principal); F17.210 Nicotine dependence, cigarettes, uncomplicated

== ENCOUNTER 2019-08-21 04:50 | Emergency (ER) | payer OTHER ==
[~2019-08-21] VITALS: Ht 162.6 cm; Wt 97.1 kg
[~2019-08-21 04:50] MED LIST changes: +ALBU8.5H; +CLIN150C14 PO; +SULF1TAB93
[2019-08-21 05:33] LABS: HEMATOCRIT 40.6 % (36.0-47.0); HEMOGLOBIN 13.5 g/dl (12.0-15.5); MEAN CORPUSCULAR HEMOGLOBIN 28.4 pg (27.0-33.0); MEAN CORPUSCULAR HGB CONC 33.3 g/dl (32.0-36.5); MEAN CORPUSCULAR VOLUME 85.5 fl (80.0-96.0); PLATELET COUNT, AUTOMATED 366 10^3/uL (150-450); RED BLOOD COUNT 4.75 10^6/uL (4.00-5.40); WHITE BLOOD COUNT 14.4 10^3/uL (4.0-10.0)
[2019-08-21] MEDS ORDERED: ALBUTEROL 90 MCG/ACT 8GM HFA INHALER INH ONE (05:45)
[2019-08-21] MEDS ORDERED: predniSONE 20 MG TAB PO ONE (05:45)
[2019-08-21 06:02] LABS: BLOOD UREA NITROGEN 14 MG/DL (7-18); CALCIUM LEVEL 9.2 MG/DL (8.5-10.1); CARBON DIOXIDE LEVEL 27 MEQ/L (21-32); CHLORIDE LEVEL 106 MEQ/L (98-107); CK-MB VALUE MASS < 1.0 NG/ML (<3.6); CPK CREATINE PHOSPHOKINASE 156 U/L (26-192); CREATININE FOR GFR 0.72 MG/DL (0.55-1.30); GLOMERULAR FILTRATION RATE > 60.0 (>60); GLUCOSE, FASTING 102 MG/DL (70-100); MB/CK RELATIVE INDEX 0.64 (< OR =4); POTASSIUM SERUM 3.6 MEQ/L (3.5-5.1); SODIUM LEVEL 139 MEQ/L (136-145); TROPONIN I < 0.02 NG/ML (< 0.10)
[2019-08-21] MEDS ORDERED: DOXYCYCLINE HYCLATE 100 MG TAB PO STA (06:24)
[2019-08-21] MEDS ORDERED: PROV108A INH (06:30)
[2019-08-21] MEDS ORDERED: DOXY100C37 PO (06:30)
[2019-08-21] MEDS ORDERED: PRED20TA PO (06:30)
[2019-08-21 06:34] VITALS: BP 143/89
--- NOTE | 2019-08-21 07:27 | ECGEPIP ---
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
--- NOTE | 2019-08-21 08:16 | REP ---
Chest x-ray: Two views. History: Cough . Comparison study: May 05, 2016 and April 23, 2018 . Findings: The lungs are well inflated and free of infiltrate. The pleural angles are sharp. The heart size is normal. Pulmonary vasculature is not increased. No significant bony abnormality is seen. Impression: Negative chest x-ray. Electronically Signed by Thomas Gomez MD 08/21/2019 08:08 A
== END 2019-08-21 06:59 | disposition home or self-care (01) ==
LOC: M ED 04:50
DX: J40 Bronchitis, not specified as acute or chronic (principal); F17.210 Nicotine dependence, cigarettes, uncomplicated; G43.909 Migraine, unspecified, not intractable, without status migrainosus; I10 Essential (primary) hypertension; K21.9 Gastro-esophageal reflux disease without esophagitis; F32.9 Major depressive disorder, single episode, unspecified

== ENCOUNTER 2019-09-03 09:13 | Emergency (ER) | payer OTHER ==
[~2019-09-03] VITALS: Ht 162.6 cm; Wt 97.0 kg
[~2019-09-03 09:13] MED LIST changes: +DOXY100C37 PO; +PRED20TA PO; +PROV108A INH
[2019-09-03 09:14] VITALS: BP 137/81
[2019-09-03] MEDS ORDERED: PRED20TA PO (09:57)
[2019-09-03] MEDS ORDERED: PENI500T PO (09:57)
[2019-09-03] MEDS ORDERED: ACETAMINOPHEN 325 MG TAB PO ONE (10:00)
== END 2019-09-03 10:06 | disposition home or self-care (01) ==
LOC: M ED 09:13
DX: J02.0 Streptococcal pharyngitis (principal); K21.9 Gastro-esophageal reflux disease without esophagitis; F17.200 Nicotine dependence, unspecified, uncomplicated; Z79.899 Other long term (current) drug therapy

== ENCOUNTER 2020-05-20 14:16 | Emergency (ER) | payer OTHER ==
[~2020-05-20] VITALS: Ht 162.6 cm; Wt 105.9 kg
[~2020-05-20 14:16] MED LIST changes: +AMLO1TAB24 PO; -AMLO5TAB6 PO; +CYCL-707 PO; -CYCL10TA PO; +PANT40TA29 PO; -PANT40TA3 PO; +PENI500T PO
[2020-05-20] MEDS ORDERED: IBUPROFEN 800 MG TAB PO ONE (15:15)
[2020-05-20] MEDS ORDERED: ACETAMINOPHEN 500 MG TAB PO ONE (15:15)
[2020-05-20 15:50] LABS: RSV AMPLIFICATION NEGATIVE (NEGATIVE)
--- NOTE | 2020-05-20 16:20 | REP ---
INDICATION: fever, cough. COMPARISON: Comparison chest x-ray August 21, 2019. TECHNIQUE: Two views.. FINDINGS: The lungs are well inflated and free of infiltrate. The pleural angles are sharp. The heart size is normal. Pulmonary vasculature is not increased. No significant bony abnormality is seen. There is a mild pectus excavatum deformity visible on lateral radiograph. IMPRESSION: Negative chest x-ray. <Electronically signed by Esdras Gomez > 05/20/20 [id number]
[2020-05-20] MEDS: ALBUTEROL 90 MCG/ACT 8GM HFA INHALER INH SCH ×2 (18:15→18:25)
[2020-05-20 19:13] LABS: BASO # 0.1 10^3/uL (0.0-0.2); BASO % 0.4 % (0.0-1.0); EOS # 0.6 10^3/uL (0.0-0.5); EOS % 3.6 % (0.0-3.0); HEMATOCRIT 42.1 % (36.0-47.0); HEMOGLOBIN 13.6 g/dl (12.0-15.5); LYMPH % 25.6 % (24.0-44.0); MEAN CORPUSCULAR HEMOGLOBIN 27.4 pg (27.0-33.0); MEAN CORPUSCULAR HGB CONC 32.3 g/dl (32.0-36.5); MEAN CORPUSCULAR VOLUME 84.7 fl (80.0-96.0); MONO # 0.8 10^3/uL (0.0-0.8); NEUTROPHILS # 10.2 10^3/uL (1.5-8.5); NEUTROPHILS % 64.9 % (36.0-66.0); PLATELET COUNT, AUTOMATED 357 10^3/uL (150-450); RED BLOOD COUNT 4.97 10^6/uL (4.00-5.40); WHITE BLOOD COUNT 15.7 10^3/uL (4.0-10.0)
[2020-05-20 19:31] LABS: BLOOD UREA NITROGEN 10 MG/DL (7-18); CALCIUM LEVEL 9.7 MG/DL (8.5-10.1); CARBON DIOXIDE LEVEL 27 MEQ/L (21-32); CHLORIDE LEVEL 105 MEQ/L (98-107); CK-MB VALUE MASS < 1.0 NG/ML (<3.6); CPK CREATINE PHOSPHOKINASE 206 U/L (26-192); CREATININE FOR GFR 0.68 MG/DL (0.55-1.30); GLOMERULAR FILTRATION RATE > 60.0 (>60); GLUCOSE, FASTING 83 MG/DL (70-100); MB/CK RELATIVE INDEX 0.49 (< OR =4); POTASSIUM SERUM 3.8 MEQ/L (3.5-5.1); SODIUM LEVEL 139 MEQ/L (136-145); TROPONIN I < 0.02 NG/ML (< 0.10)
[2020-05-20 19:33] LABS: HCG, SERUM QUALITATIVE NEGATIVE (NEGATIVE)
[2020-05-20] MEDS ORDERED: PROAAER10 INH (19:41)
[2020-05-20] MEDS ORDERED: TESS100C PO (19:41)
[2020-05-20 19:44] VITALS: BP 134/82
== END 2020-05-20 20:10 | disposition home or self-care (01) ==
LOC: M ED 14:16
DX: R07.9 Chest pain, unspecified (principal); D72.829 Elevated white blood cell count, unspecified; R05 Cough; R06.02 Shortness of breath

== ENCOUNTER 2020-12-03 23:09 | Emergency (ER) | payer OTHER ==
[~2020-12-03] VITALS: Ht 162.6 cm; Wt 111.6 kg
[~2020-12-03 23:09] MED LIST changes: +BACTDSTA; -CLIN150C14 PO; +CLIN150C15 PO; -DOXY100C37 PO; +DOXY1CAP62 PO; +PROAAER10 INH; -SULF1TAB93; +TESS100C PO
[2020-12-04] MEDS ORDERED: NS 1,000 ML IV ONE (01:30)
[2020-12-04] MEDS ORDERED: MORPHINE 2 MG/ML 1ML VIAL (J2270) IV PRN (01:30)
[2020-12-04] MEDS ORDERED: ONDANSETRON 4MG/2ML VIAL IV ONE (01:30)
[2020-12-04 01:50] LABS: BASO % 0.4 % (0.0-1.0); EOS # 0.2 10^3/uL (0.0-0.5); EOS % 2.1 % (0.0-3.0); HEMOGLOBIN 12.6 g/dl (12.0-15.5); LYMPH # 4.9 10^3/uL (1.5-5.0); LYMPH % 44.6 % (24.0-44.0); MEAN CORPUSCULAR HGB CONC 32.3 g/dl (32.0-36.5); MEAN CORPUSCULAR VOLUME 86.7 fl (80.0-96.0); MONO # 0.7 10^3/uL (0.0-0.8); MONO % 6.7 % (2.0-8.0); NEUTROPHILS # 5.1 10^3/uL (1.5-8.5); PLATELET COUNT, AUTOMATED 317 10^3/uL (150-450); WHITE BLOOD COUNT 11.1 10^3/uL (4.0-10.0)
[2020-12-04] MEDS ORDERED: ISOVUE-370 76% 100ML VIAL As Ordered ONE (01:59)
[2020-12-04 02:23] LABS: HCG, SERUM QUALITATIVE NEGATIVE (NEGATIVE)
[2020-12-04 02:25] LABS: ALBUMIN 3.8 GM/DL (3.2-5.2); ALT/SGPT 79 U/L (12-78); AMYLASE 38 U/L (25-115); BILIRUBIN,DIRECT 0.1 MG/DL (0.0-0.2); BILIRUBIN,TOTAL 0.7 MG/DL (0.2-1.0); BLOOD UREA NITROGEN 12 MG/DL (7-18); CALCIUM LEVEL 8.9 MG/DL (8.5-10.1); CARBON DIOXIDE LEVEL 28 MEQ/L (21-32); CHLORIDE LEVEL 110 MEQ/L (98-107); CREATININE FOR GFR 0.69 MG/DL (0.55-1.30); GLOMERULAR FILTRATION RATE > 60.0 (>60); GLUCOSE, FASTING 100 MG/DL (70-100); LIPASE 94 U/L (73-393); POTASSIUM SERUM 4.1 MEQ/L (3.5-5.1); SODIUM LEVEL 143 MEQ/L (136-145); TOTAL PROTEIN 7.1 GM/DL (6.4-8.2)
[2020-12-04 03:21] LABS: GC DNA AMPLIFICATION NEGATIVE (NEGATIVE)
--- NOTE | 2020-12-04 04:22 | REPVR ---
PROCEDURE INFORMATION: Exam: CT Abdomen and Pelvis with Contrast Exam date and time: 12/04/20 (2:40am) Age: 25 years old Clinical indication: Generalized abdominal pain TECHNIQUE: Imaging protocol: Computed tomography of the abdomen and pelvis with contrast. Radiation optimization: All CT scans at this facility use at least one of these dose optimization techniques: automated exposure control; mA and/or kV adjustment per patient size (includes targeted exams where dose is matched to clinical indication); or iterative reconstruction. Contrast material: Iso Contrast volume: 100 ml Contrast route: IV COMPARISON: CT ABDOMEN PELVIS of 08/16/18 FINDINGS: Liver: No solid mass. Diffuse fatty infiltration. Gallbladder and bile ducts: Normal. No calcified stones. No ductal dilatation. Pancreas: Normal. No ductal dilatation. Spleen: Normal. No splenomegaly. Adrenal glands: Normal. No mass. Kidneys and ureters: Normal. No hydronephrosis. Stomach and bowel: Unremarkable. No bowel obstruction. No mucosal thickening. Appendix: A normal appendix is visualized. Intraperitoneal space: Unremarkable. No free air. No significant fluid collection. Vasculature: Unremarkable. No abdominal aortic aneurysm. Lymph nodes: Unremarkable. No enlarged lymph nodes. Urinary bladder: Unremarkable as visualized. Reproductive: Unremarkable as visualized. Bones/joints: Unremarkable. No acute fracture. Soft tissues: Unremarkable. IMPRESSION: No acute findings. Electronically signed by: Yandy Moralez On 12/04/2020 04:22:24 AM
[2020-12-04] MEDS ORDERED: GI COCKTAIL 50ML BTL(HYOSCYAMINE/MAALOX/LIDOCAINE VISCOUS)(1:3:1) PO ONE (05:00)
[2020-12-04] MEDS ORDERED: SUCR1TA PO (06:27)
[2020-12-04] MEDS ORDERED: OMEP40CA4 PO (06:27)
[2020-12-04 06:30] VITALS: BP 102/63
== END 2020-12-04 06:45 | disposition home or self-care (01) ==
LOC: M ED 23:09
DX: K29.70 Gastritis, unspecified, without bleeding (principal); I10 Essential (primary) hypertension; F32.9 Major depressive disorder, single episode, unspecified; Z79.899 Other long term (current) drug therapy
CPT/HCPCS: 74177; 80048; 80076; 81001; 82150; 83605; 83690; 84703; 85025; 87086; 87491; 87591; 93041; 96361; 96374; 99285; J2405; Q9967

== ENCOUNTER 2021-05-25 09:40 | Emergency (ER) | payer OTHER ==
[~2021-05-25] VITALS: Ht 162.6 cm; Wt 107.4 kg
[~2021-05-25 09:40] MED LIST changes: -CLIN150C15 PO; +CLIN150C17 PO; +DOXY-443 PO; -DOXY1CAP62 PO; +OMEP40CA4 PO
[2021-05-25 10:17] LABS: BASO # 0.1 10^3/uL (0.0-0.2); BASO % 0.5 % (0.0-1.0); EOS # 0.2 10^3/uL (0.0-0.5); EOS % 1.5 % (0.0-3.0); HEMATOCRIT 42.8 % (36.0-47.0); HEMOGLOBIN 13.8 g/dl (12.0-15.5); LYMPH # 3.8 10^3/uL (1.5-5.0); LYMPH % 34.5 % (24.0-44.0); MEAN CORPUSCULAR HEMOGLOBIN 27.7 pg (27.0-33.0); MEAN CORPUSCULAR HGB CONC 32.2 g/dl (32.0-36.5); MEAN CORPUSCULAR VOLUME 85.8 fl (80.0-96.0); MONO # 0.7 10^3/uL (0.0-0.8); MONO % 6.3 % (2.0-8.0); NEUTROPHILS # 6.3 10^3/uL (1.5-8.5); NEUTROPHILS % 56.9 % (36.0-66.0); PLATELET COUNT, AUTOMATED 380 10^3/uL (150-450); RED BLOOD COUNT 4.99 10^6/uL (4.00-5.40)
[2021-05-25 10:46] LABS: ALBUMIN 4.2 GM/DL (3.2-5.2); ALT/SGPT 68 U/L (12-78); BILIRUBIN,DIRECT 0.2 MG/DL (0.0-0.2); BILIRUBIN,TOTAL 1.3 MG/DL (0.2-1.0); BLOOD UREA NITROGEN 16 MG/DL (7-18); CALCIUM LEVEL 9.3 MG/DL (8.5-10.1); CARBON DIOXIDE LEVEL 27 MEQ/L (21-32); CHLORIDE LEVEL 106 MEQ/L (98-107); CREATININE FOR GFR 0.82 MG/DL (0.55-1.30); GLOMERULAR FILTRATION RATE > 60.0 (>60); GLUCOSE, FASTING 114 MG/DL (70-100); LIPASE 96 U/L (73-393); POTASSIUM SERUM 3.8 MEQ/L (3.5-5.1); SODIUM LEVEL 140 MEQ/L (136-145); TOTAL PROTEIN 7.8 GM/DL (6.4-8.2)
[2021-05-25] MEDS: ONDANSETRON 4MG/2ML VIAL IV ONE (11:56)
--- NOTE | 2021-05-25 12:18 | REP ---
INDICATION: RUQ pain vomiting. COMPARISON: No prior right upper quadrant ultrasound examinations for comparison. TECHNIQUE: Real-time sonographic evaluation of the right upper quadrant with Doppler FINDINGS: Multiple ultrasonographic images of the liver show diffuse increase echoes throughout the hepatic parenchyma without evidence of a mass or ductal dilatation. The common bile duct measures between 4 mm in its greatest transverse dimension. Multiple ultrasonographic images of the gallbladder show multiple echogenic foci within the gallbladder lumen which casts acoustic shadows. There is no gallbladder wall thickening or pericholecystic edema. Images of the pancreatic region show no gross abnormality. The imaged portion of the right kidney is unremarkable. IMPRESSION: Fatty infiltration of the liver. Cholelithiasis. Accredited by the [employer] in General Ultrasound. <Electronically signed by Serg Abarca > 05/25/21 [id number]
[2021-05-25] MEDS ORDERED: ISOVUE-370 76% 100ML VIAL As Ordered ONE (12:44)
[2021-05-25 12:52] LABS: RSV AMPLIFICATION NEGATIVE (NEGATIVE)
[2021-05-25 13:33] VITALS: BP 133/72
[2021-05-25] MEDS ORDERED: AUGM875T28 PO (13:46)
[2021-05-25] MEDS ORDERED: ZOFR4TAB16 PO (13:46)
== END 2021-05-25 14:17 | disposition home or self-care (01) ==
LOC: M ED 09:40
DX: K80.20 Calculus of gallbladder without cholecystitis without obstruction (principal); R11.10 Vomiting, unspecified; K76.0 Fatty (change of) liver, not elsewhere classified; F17.290 Nicotine dependence, other tobacco product, uncomplicated
CPT/HCPCS: 36415; 76705; 80048; 80076; 83690; 85025; 87631; 96374; 99284; J2405

== ENCOUNTER 2021-06-03 14:31 | Emergency (ER) | payer OTHER ==
[~2021-06-03] VITALS: Ht 162.6 cm; Wt 107.3 kg
[~2021-06-03 14:31] MED LIST changes: +AUGM875T28 PO; +ZOFR4TAB16 PO
[2021-06-03] MEDS ORDERED: KETOROLAC 30 MG/ML 1ML VIAL IV ONE (18:15)
[2021-06-03] MEDS ORDERED: NS 1,000 ML IV ONE (18:15)
[2021-06-03] MEDS ORDERED: ONDANSETRON 4MG/2ML VIAL IV ONE (18:15)
[2021-06-03 18:58] LABS: BASO # 0.1 10^3/uL (0.0-0.2); BASO % 0.7 % (0.0-1.0); EOS # 0.2 10^3/uL (0.0-0.5); EOS % 1.9 % (0.0-3.0); HEMATOCRIT 41.1 % (36.0-47.0); HEMOGLOBIN 13.6 g/dl (12.0-15.5); LYMPH # 4.2 10^3/uL (1.5-5.0); MEAN CORPUSCULAR HEMOGLOBIN 28.3 pg (27.0-33.0); MEAN CORPUSCULAR HGB CONC 33.1 g/dl (32.0-36.5); MEAN CORPUSCULAR VOLUME 85.4 fl (80.0-96.0); MONO # 0.5 10^3/uL (0.0-0.8); NEUTROPHILS # 5.7 10^3/uL (1.5-8.5); PLATELET COUNT, AUTOMATED 342 10^3/uL (150-450); RED BLOOD COUNT 4.81 10^6/uL (4.00-5.40); WHITE BLOOD COUNT 10.7 10^3/uL (4.0-10.0)
[2021-06-03 19:24] LABS: ALBUMIN 4.1 GM/DL (3.2-5.2); ALT/SGPT 61 U/L (12-78); BILIRUBIN,DIRECT 0.2 MG/DL (0.0-0.2); BILIRUBIN,TOTAL 0.8 MG/DL (0.2-1.0); BLOOD UREA NITROGEN 11 MG/DL (7-18); CALCIUM LEVEL 9.6 MG/DL (8.5-10.1); CARBON DIOXIDE LEVEL 25 MEQ/L (21-32); CHLORIDE LEVEL 107 MEQ/L (98-107); CREATININE FOR GFR 0.68 MG/DL (0.55-1.30); GLOMERULAR FILTRATION RATE > 60.0 (>60); GLUCOSE, FASTING 90 MG/DL (70-100); LIPASE 90 U/L (73-393); SODIUM LEVEL 141 MEQ/L (136-145); TOTAL PROTEIN 7.6 GM/DL (6.4-8.2)
[2021-06-03 19:25] LABS: HCG, SERUM QUALITATIVE NEGATIVE (NEGATIVE)
[2021-06-03] MEDS ORDERED: ISOVUE-370 76% 100ML VIAL As Ordered ONE (19:52)
--- NOTE | 2021-06-03 21:24 | REPVR ---
PROCEDURE INFORMATION: Exam: CT Abdomen And Pelvis With Contrast Exam date and time: 06/03/2021 8:24 PM Age: 26 years old Clinical indication: Abdominal pain; Generalized; Additional info: Inc abd pain TECHNIQUE: Imaging protocol: Computed tomography of the abdomen and pelvis with contrast. Radiation optimization: All CT scans at this facility use at least one of these dose optimization techniques: automated exposure control; mA and/or kV adjustment per patient size (includes targeted exams where dose is matched to clinical indication); or iterative reconstruction. Contrast material: ISOVUE 370; Contrast volume: 100 ml; Contrast route: INTRAVENOUS (IV); COMPARISON: CT ABD/PEL W/IV CONTRAST ONLY 12/04/2020 2:39 AM FINDINGS: Liver: There is a diffuse decrease in hepatic parenchymal density, consistent with steatosis. Gallbladder and bile ducts: Normal. No calcified stones. No ductal dilation. Pancreas: Normal. No ductal dilation. Spleen: Normal. No splenomegaly. Adrenal glands: Normal. No mass. Kidneys and ureters: Normal. No hydronephrosis. Stomach and bowel: Unremarkable. No obstruction. No mucosal thickening. Appendix: The appendix is within normal limits. There is no appendiceal enlargement, periappendiceal inflammatory changes or abscess. Intraperitoneal space: Unremarkable. No free air. No significant fluid collection. Vasculature: Unremarkable. No abdominal aortic aneurysm. Lymph nodes: Unremarkable. No enlarged lymph nodes. Urinary bladder: Unremarkable as visualized. Reproductive: Unremarkable as visualized. Bones/joints: Unremarkable. No acute fracture. Soft tissues: Unremarkable. IMPRESSION: 1. There is a diffuse decrease in hepatic parenchymal density, consistent with steatosis. 2. The appendix is within normal limits. There is no appendiceal enlargement, periappendiceal inflammatory changes or abscess. 3. No acute findings. Electronically signed by: Sy Hansen On 06/03/2021 21:23:46 PM
[2021-06-03] MEDS ORDERED: KETO10TAB PO (21:49)
[2021-06-03] MEDS ORDERED: PANT40TA29 PO (21:49)
[2021-06-03 22:25] VITALS: BP 134/71
== END 2021-06-03 22:26 | disposition home or self-care (01) ==
LOC: M ED 14:31
DX: K80.20 Calculus of gallbladder without cholecystitis without obstruction (principal); E66.9 Obesity, unspecified; I10 Essential (primary) hypertension; R51.9 Headache, unspecified; G43.909 Migraine, unspecified, not intractable, without status migrainosus; F32.9 Major depressive disorder, single episode, unspecified; K21.9 Gastro-esophageal reflux disease without esophagitis; F17.290 Nicotine dependence, other tobacco product, uncomplicated
CPT/HCPCS: 74177; 80048; 80076; 83690; 84703; 85025; 96361; 96374; 96375; 99284; J1885; J2405; Q9967

== ENCOUNTER → 2021-11-24 | Outpatient (CLI) | payer OTHER ==
[~2021-11-24] MED LIST changes: +KETO10TAB PO
[2021-11-24 17:12] LABS: URINE PREG TEST NEGATIVE (NEGATIVE)
[2021-11-24 17:37] LABS: ALBUMIN 4.4 GM/DL (3.2-5.2); BILIRUBIN,DIRECT 0.3 MG/DL (0.0-0.2); BILIRUBIN,TOTAL 1.4 MG/DL (0.2-1.0); TOTAL PROTEIN 7.7 GM/DL (6.4-8.2)
== END ==
LOC: M LAB 16:06
PROVIDERS: ATTEND Student in an Organized Health Care Education/Training Program
DX: R10.84 Generalized abdominal pain (principal)

== ENCOUNTER 2023-05-24 14:37 | Emergency (ER) | payer OTHER, SELFPAY ==
[~2023-05-24] VITALS: Ht 162.6 cm; Wt 88.0 kg
[~2023-05-24 14:37] MED LIST changes: +ALBU6.7H6 INH; +ETON1VAG7 PV; +MECL-209 PO; +METH-1164 PO; +NAPR-885 PO; -NUVAMIS2 PV; -PROV108A INH
[2023-05-24 15:42] LABS: BASO % 0.4 % (0.0-1.0); EOS # 0.2 10^3/uL (0.0-0.5); EOS % 2.6 % (0.0-3.0); HEMATOCRIT 40.4 % (36.0-47.0); HEMOGLOBIN 13.5 g/dl (12.0-15.5); LYMPH # 2.9 10^3/uL (1.5-5.0); LYMPH % 35.1 % (24.0-44.0); MEAN CORPUSCULAR HEMOGLOBIN 28.7 pg (27.0-33.0); MEAN CORPUSCULAR HGB CONC 33.4 g/dl (32.0-36.5); MONO # 0.6 10^3/uL (0.0-0.8); NEUTROPHILS # 4.5 10^3/uL (1.5-8.5); NEUTROPHILS % 54.7 % (36.0-66.0); PLATELET COUNT, AUTOMATED 330 10^3/uL (150-450); WHITE BLOOD COUNT 8.1 10^3/uL (4.0-10.0)
[2023-05-24 16:06] LABS: HCG, SERUM QUALITATIVE NEGATIVE (NEGATIVE); LIPASE 38 U/L (12-53)
[2023-05-24 16:08] LABS: ALBUMIN 4.3 G/DL (3.2-5.2); ALKALINE PHOSPHATASE 57 U/L (46-116); ALT/SGPT 17 U/L (7.0-40); AST/SGOT 16 U/L (<34); BILIRUBIN,DIRECT 0.2 MG/DL (<0.4); BILIRUBIN,TOTAL 0.7 MG/DL (0.3-1.2); BLOOD UREA NITROGEN 11 MG/DL (9-23); CALCIUM LEVEL 9.6 MG/DL (8.5-10.1); CARBON DIOXIDE LEVEL 26 MMOL/L (20-31); CHLORIDE LEVEL 107 MMOL/L (98-107); CREATININE FOR GFR 0.59 MG/DL (0.55-1.30); GLOMERULAR FILTRATION RATE > 60.0 (>60); GLUCOSE, FASTING 89 MG/DL (60-100); POTASSIUM SERUM 3.6 MMOL/L (3.5-5.1); SODIUM LEVEL 141 MMOL/L (136-145); TOTAL PROTEIN 7.6 G/DL (5.7-8.2)
[2023-05-24] MEDS ORDERED: NS 1,000 ML IV ONE (16:45)
[2023-05-24] MEDS ORDERED: ISOVUE-370 76% 100ML VIAL As Ordered ONE (16:52)
[2023-05-24 18:24] VITALS: BP 127/70; TEMP 98.2; O2SAT 98
== END 2023-05-24 18:57 | disposition home or self-care (01) ==
LOC: M ED 14:37
DX: K52.9 Noninfective gastroenteritis and colitis, unspecified (principal); K92.2 Gastrointestinal hemorrhage, unspecified; K21.9 Gastro-esophageal reflux disease without esophagitis; F17.200 Nicotine dependence, unspecified, uncomplicated
CPT/HCPCS: 74177; 80048; 80076; 81001; 83690; 84703; 85025; 87086; 87507; 96361; 99284; Q9967

== ENCOUNTER → 2023-10-21 | Outpatient (REF) | payer OTHER ==
[~2023-10-21] MED LIST changes: +DOXY-323 PO; -DOXY-443 PO
[2023-10-21 17:51] LABS: APPEARANCE, URINE CLOUDY (CLEAR); BACTERIA, URINE AUTO NEGATIVE (NEGATIVE); BILIRUBIN, URINE AUTO NEGATIVE (NEGATIVE); BLOOD, URINE BLOOD 2+ (NEGATIVE); COLOR, URINE YELLOW (YELLOW); GLUCOSE, URINE (UA) AUTO NEGATIVE (NEGATIVE); KETONE, URINE AUTO NEGATIVE (NEGATIVE); LEUKOCYTE ESTERASE, URINE AUTO 2+ (NEGATIVE); MUCUS, URINE SMALL (NEGATIVE); NITRITE, URINE AUTO NEGATIVE (NEGATIVE); PROTEIN, URINE AUTO 2+ mg/dL (NEGATIVE); RBC, URINE AUTO TNTC /HPF (0-3); SPECIFIC GRAVITY URINE AUTO 1.023 (1.002-1.035); SQUAMOUS EPITHELIAL CELL UR AU 1 /HPF (0-6); UROBILINOGEN, URINE AUTO 0.2 mg/dL (0.0-2.0); WBC, URINE AUTO TNTC /HPF (0-3)
== END ==
LOC: M LAB REF 17:30
PROVIDERS: ATTEND Physician Assistant Medical
DX: N39.0 Urinary tract infection, site not specified (principal)

== ENCOUNTER 2025-03-06 06:21 | Emergency (ER) | payer OTHER ==
[~2025-03-06] VITALS: Ht 162.6 cm; Wt 100.0 kg
[~2025-03-06 06:21] MED LIST changes: -DOXY-323 PO; +DOXY-441 PO; +MAG30ORA18 PO; -MYLASSUD PO
[2025-03-06] MEDS: KETOROLAC 60 MG/2 ML VIAL IM ONE (08:12)
[2025-03-06 08:22] VITALS: TEMP 97.7
[2025-03-06 08:31] VITALS: BP 127/73; O2SAT 99
[2025-03-06] MEDS ORDERED: KETO-204 PO (08:34)
[2025-03-06] MEDS ORDERED: METH-1165 PO (08:34)
== END 2025-03-06 08:39 | disposition home or self-care (01) ==
LOC: M ED 06:21
DX: M62.838 Other muscle spasm (principal); M54.2 Cervicalgia; K21.9 Gastro-esophageal reflux disease without esophagitis; Z79.2 Long term (current) use of antibiotics; Z79.899 Other long term (current) drug therapy
CPT/HCPCS: 72040; 96372; 99284; J1885

== ENCOUNTER → 2025-03-19 | Outpatient (CLI) | payer OTHER ==
[~2025-03-19] MED LIST changes: +KETO-204 PO; +METH-1165 PO
[2025-03-23 16:22] LABS: LYME TOTAL ANTIBODY CIA <= 0.90 Index (<=0.90)
== END ==
LOC: M WUC 09:20
PROVIDERS: ATTEND Nurse Practitioner Family
DX: R21 Rash and other nonspecific skin eruption (principal)